=== PATIENT | female | born 1975 | race Hispanic/Latino ===

== ENCOUNTER 2020-07-26 03:34 | Emergency (ER) | payer BC ==
[2020-07-26] MEDS ORDERED: Ketorolac Tromethamine 30 MG/ML VIAL ONE (04:02)
[2020-07-26] MEDS ORDERED: Ondansetron PF 4 MG/2 ML Vial ONE (04:47)
[2020-07-26] MEDS ORDERED: Morphine 4 MG/ML VIAL ONE (04:47)
[2020-07-26 04:56] LABS: ALT (SGPT) 11 U/L (8-55); AST (SGOT) 11 U/L (5-34); Albumin 3.9 g/dL (3.5-5.0); Alkaline Phosphatase 116 U/L (40-110); Anion Gap 14 mmol/L (10-20); BUN (Urea Nitrogen) 13 mg/dL (7.0-18.7); Bilirubin, Total 1.4 mg/dL (0.2-1.2); CK (CPK) 18 U/L (29-168); Calc. Creatinine Clearance 0 mL/min (70-130); Calcium 8.2 mg/dL (7.8-10.44); Carbon Dioxide 24 mmol/L (22-29); Chloride 103 mmol/L (98-107); Estimated GFR-MDRD Greater than 90; Globulin 2.9 g/dL (2.4-3.5); Glucose 93 mg/dL (70-105); Potassium 3.1 mmol/L (3.5-5.1); Protein, Total 6.8 g/dL (6.0-8.3); Sodium 138 mmol/L (136-145)
[2020-07-26 05:09] LABS: Band 9 % (5-11); Hemoglobin 13.4 g/dL (12.0-16.0); Lymphocytes 28 % (21-51); MDiff Complete? YES; Mean Corpuscular HGB CONC 31.8 g/dL (32.0-36.0); Mean Corpuscular Hemoglobin 28.6 pg (27.0-31.0); Mean Corpuscular Volume 89.9 fL (78.0-98.0); Mean Platelet Volume 7.3 fL (7.4-10.4); Monocytes 1 % (0-10); Neutrophil 62 % (42-75); Platelet Count 206 thou/uL (130-400); RBC Distribution Width 12.1 % (11.5-14.5); Red Blood Cell (RBC) Count 4.69 mill/uL (4.20-5.40)
[2020-07-26] MEDS ORDERED: HYDROcodone/Acetaminophen 5/325 mg Tablet ONE (05:40)
== END 2020-07-26 05:41 | disposition home or self-care (01) ==
LOC: ERS 03:34
DX: M79.10 Myalgia, unspecified site (principal); C50.919 Malignant neoplasm of unspecified site of unspecified female breast; F41.9 Anxiety disorder, unspecified; F32.9 Major depressive disorder, single episode, unspecified
CPT/HCPCS: 80053; 82550; 85025; J1885; J2270; J2405

== ENCOUNTER 2020-07-26 22:42 | Emergency (ER) | payer BC ==
[~2020-07-26 22:42] MED LIST: Iopamidol-370 76% 500 ML 1 ML ONE
[2020-07-26] MEDS ORDERED: Fentanyl 100 MCG/2 ML VIAL ONE ×3 (22:55→23:52)
[2020-07-26] MEDS ORDERED: Ondansetron PF 4 MG/2 ML Vial ONE (22:55)
[2020-07-26 23:27] LABS: Hemoglobin 13.7 g/dL (12.0-16.0); Mean Corpuscular HGB CONC 32.9 g/dL (32.0-36.0); Mean Corpuscular Volume 91.3 fL (78.0-98.0); Mean Platelet Volume 7.6 fL (7.4-10.4); Platelet Count 202 thou/uL (130-400); RBC Distribution Width 12.1 % (11.5-14.5); Red Blood Cell (RBC) Count 4.57 mill/uL (4.20-5.40); White Blood Cell (WBC) Count 5.9 thou/uL (4.8-10.8)
[2020-07-26 23:32] LABS: ALT (SGPT) 17 U/L (8-55); AST (SGOT) 17 U/L (5-34); Albumin 3.9 g/dL (3.5-5.0); Alkaline Phosphatase 133 U/L (40-110); Anion Gap 14 mmol/L (10-20); BUN (Urea Nitrogen) 16 mg/dL (7.0-18.7); Bilirubin, Total 0.7 mg/dL (0.2-1.2); CK (CPK) 22 U/L (29-168); Calc. Creatinine Clearance 0 mL/min (70-130); Calcium 8.8 mg/dL (7.8-10.44); Carbon Dioxide 22 mmol/L (22-29); Chloride 103 mmol/L (98-107); Estimated GFR-MDRD 87; Globulin 2.9 g/dL (2.4-3.5); Glucose 126 mg/dL (70-105); Potassium 3.2 mmol/L (3.5-5.1); Protein, Total 6.8 g/dL (6.0-8.3); Sodium 136 mmol/L (136-145)
--- NOTE | 2020-07-26 23:39 | CT ---
CT abdomen and pelvis: 07/26/2020 HISTORY: Pain TECHNIQUE: Axial CT imaging at 5 mm intervals through the abdomen/pelvis with IV contrast. Coronal an d sagittal reformatted imaging obtained FINDINGS: The lack of oral contrast limits assessment of the bowel. The visualized lung bases are unr emarkable. Cholecystectomy clips are present. No free intraperitoneal air. There is an IUD within the uterus. The liver, spleen, pancreas, adrenal glands, and kidneys demonstrate no acute findings. L imited assessment of the bowel appears unremarkable. The appendix appears unremarkable. No abdominal or pelvic lymphadenopathy. The vascular structures appear patent. No acute osseous abnor mality. IMPRESSION: No acute findings.
[2020-07-27 00:01] LABS: Band 11 % (5-11); Eosinophils 2 % (0-10); Lymphocytes 58 % (21-51); MDiff Complete? YES; Monocytes 5 % (0-10); Neutrophil 24 % (42-75)
[2020-07-27 00:44] LABS: Bilirubin Negative (Negative); Blood, Urine Negative (Negative); Clarity Clear (Clear); Glucose, Urine (Dipstick) Normal (Negative); Ketone, Urine Negative (Negative); Leukocyte Negative Leu/uL (Negative); Nitrite Negative (Negative); Protein, Urine (Dipstick) Negative (Neg-Trace); Urobilinogen Normal mg/dL (Less than 2)
[2020-07-27 00:46] LABS: Specific Gravity, Urine Greater than 1.060 (1.002-1.036)
[2020-07-27] MEDS ORDERED: Fentanyl 100 MCG/2 ML VIAL ONE ×2 (00:52→00:53)
== END 2020-07-27 01:43 | disposition home or self-care (01) ==
LOC: ERS 22:42
DX: M54.5 Low back pain (principal); E86.0 Dehydration; F32.9 Major depressive disorder, single episode, unspecified; F41.9 Anxiety disorder, unspecified
CPT/HCPCS: 74177; 80053; 81003; 82550; 84484; 85025; 93005; 96374; 96375; 96376; J1885; J2270; J2405; J3010; Q9967

== ENCOUNTER 2020-10-02 17:33 | Emergency (ER) | payer BC, OTHER ==
[2020-10-02 18:47] LABS: Hemoglobin 10.7 g/dL (12.0-16.0); Mean Corpuscular HGB CONC 33.4 g/dL (32.0-36.0); Mean Corpuscular Hemoglobin 31.7 pg (27.0-31.0); Mean Platelet Volume 6.3 fL (7.4-10.4); Platelet Count 292 thou/uL (130-400); RBC Distribution Width 14.9 % (11.5-14.5); Red Blood Cell (RBC) Count 3.37 mill/uL (4.20-5.40); White Blood Cell (WBC) Count 14.4 thou/uL (4.8-10.8)
[2020-10-02 19:06] LABS: Anion Gap 11 mmol/L (10-20); BUN (Urea Nitrogen) 10 mg/dL (7.0-18.7); Calc. Creatinine Clearance 0 mL/min (70-130); Calcium 8.4 mg/dL (7.8-10.44); Carbon Dioxide 24 mmol/L (22-29); Chloride 106 mmol/L (98-107); Glucose 106 mg/dL (70-105); Potassium 3.7 mmol/L (3.5-5.1); Sodium 137 mmol/L (136-145)
[2020-10-02 19:25] LABS: Band 34 % (5-11); Hypochromia SLIGHT = 6-15 cells (100X) (0-5/hpf); Lymphocytes 13 % (21-51); MDiff Complete? YES; Metamyelocyte 1 % (0-0); Monocytes 8 % (0-10); Myelocyte 1 % (0-0); Neutrophil 43 % (42-75); Platelet Morphology Comment Appears Adequate; Polychromasia SLIGHT = 2-3 cells (100X) (0-2/hpf); Tear Drops SLIGHT = 2-5 cells (100X) (0-1/hpf)
[2020-10-02 20:46] LABS: Bacteria/HPF None Seen HPF (None Seen); Bilirubin Negative (Negative); Blood, Urine Negative (Negative); Clarity Clear (Clear); Glucose, Urine (Dipstick) Normal (Negative); Ketone, Urine Negative (Negative); Leukocyte 25 Leu/uL (Negative); Nitrite Negative (Negative); Protein, Urine (Dipstick) 20 mg/dL (Neg-Trace); RBC/HPF 0-3 HPF (0-3); Specific Gravity, Urine 1.026 (1.002-1.036); Urobilinogen Normal mg/dL (Less than 2)
== END 2020-10-02 23:14 | disposition home or self-care (01) ==
LOC: ERS 17:33
DX: D72.829 Elevated white blood cell count, unspecified (principal); L89.629 Pressure ulcer of left heel, unspecified stage; L89.619 Pressure ulcer of right heel, unspecified stage; Z79.899 Other long term (current) drug therapy
CPT/HCPCS: 36415; 80048; 81003; 81015; 83605; 85025; 87040; 87149; 99283

== ENCOUNTER 2024-09-29 04:55 | Emergency (ER) | payer BC, OTHER ==
[2024-09-29] MEDS ORDERED: Gabapentin 300 MG CAP ONE (07:04)
[2024-09-29] MEDS ORDERED: Ketorolac Tromethamine 30 MG (1 mL) VIAL ONE (07:04)
[2024-09-29 07:12] LABS: #Basophils 0.03 10x3/uL (0.0-0.2); %Basophils 0.4 % (0.0-1.0); %Eosinophils 2.6 % (0.0-10.0); %Lymphocytes 26.4 % (21.0-51.0); %Neutrophils 62.3 % (42.0-75.0); Hematocrit 38.5 % (36.0-47.0); Hemoglobin 12.6 g/dL (12.0-16.0); Mean Corpuscular HGB CONC 32.7 g/dL (32.0-36.0); Mean Corpuscular Hemoglobin 27.8 pg (27.0-31.0); Mean Platelet Volume 8.9 fL (7.4-10.4); Platelet Count 283 10x3/uL (130-400); RBC Distribution Width 13.6 % (11.5-14.5); Red Blood Cell (RBC) Count 4.53 mill/uL (4.20-5.40)
[2024-09-29 07:27] LABS: ALT (SGPT) 17 U/L (Less than 34); AST (SGOT) 36 U/L (11-34); Albumin 3.6 g/dL (3.1-4.5); Alkaline Phosphatase 82 U/L (40-110); Anion Gap 11 mmol/L (10-20); BUN (Urea Nitrogen) 13 mg/dL (7.0-18.7); Bilirubin, Total 1.4 mg/dL (0.3-1.2); Calc. Creatinine Clearance 0 mL/min (70-130); Carbon Dioxide 23 mmol/L (22-29); Chloride 107 mmol/L (98-107); Estimated GFR 111; Globulin 3.2 g/dL (2.4-3.5); Glucose 91 mg/dL (70-105); Lipase 9 U/L (8-78); Potassium 3.3 mmol/L (3.5-5.1); Protein, Total 6.8 g/dL (6.0-8.3); Sodium 138 mmol/L (136-145)
[2024-09-29 07:30] LABS: Troponin I Less than 0.010 ng/mL (< 0.028)
[2024-09-29] MEDS ORDERED: Morphine 4 MG/ML VIAL ONE (08:28)
== END 2024-09-29 09:25 | disposition home or self-care (01) ==
LOC: ERS 04:55
DX: R07.9 Chest pain, unspecified (principal); M54.2 Cervicalgia; Z85.3 Personal history of malignant neoplasm of breast
CPT/HCPCS: 71045; 80053; 83690; 84484; 85025; 93005; 96374; 96375; J1885; J2270